=== PATIENT | female | born 1960 | race Caucasian/White ===

== ENCOUNTER 2017-07-29 12:00 | Emergency (ER) | payer MEDICAID ==
[2014-11-06 10:57] VITALS: BMI 25.8
[2017-07-29 12:20] VITALS: BP 169/66; PULSE 77; RESP 18; TEMP 98; O2SAT 97
--- NOTE | 2017-07-29 12:40 | ED PDOC ---
Lower Extremity Pain/Injury Time Seen by Provider: 07/29/17 12:16 Chief Complaint (Nursing): Lower Extremity Problem/Injury Chief Complaint (Provider): Left lower extremity pain History Per: Patient History/Exam Limitations: no limitations Onset/Duration Of Symptoms: Days (2) Current Symptoms Are (Timing): Still Present Additional Complaint(s): 56yo female, with past medical history of COPD, hypertension, presents to the ED for evaluation of left calf pain x 2 days. Patient states she feels her legs are weak and numb when she is walking up the stairs. She also reports she has been feeling dizzy and light headed as well. 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 She denies any control use, trauma or injury to her leg. Past Medical History Reviewed: Historical Data, Nursing Documentation, Vital Signs Vital Signs: Last Vital Signs Temp 98.0 F 07/29/17 12:17 Pulse 77 07/29/17 12:17 Resp 18 07/29/17 12:17 BP 169/66 H 07/29/17 12:17 Pulse Ox 97 07/29/17 12:17 - Medical History PMH: Anxiety, Asthma, Depression, Gastritis, HTN - Surgical History Surgical History: Cholecystectomy - Family History Family History: States: No Known Family Hx - Allergies Allergies/Adverse Reactions: Allergies Allergy/AdvReac Type Severity Reaction Status Date / Time No Known Allergies Allergy Verified 07/29/17 12:20 Review of Systems Cardiovascular: Positive for: Light Headedness Musculoskeletal: Positive for: Leg Pain (left calf pain) Neurological: Positive for: Weakness, Dizziness Physical Exam - Reviewed Nursing Documentation Reviewed: Yes Vital Signs Reviewed: Yes - Physical Exam Appears: Positive for: Non-toxic, No Acute Distress Head Exam: Positive for: ATRAUMATIC, NORMAL INSPECTION, NORMOCEPHALIC Eye Exam: Positive for: Normal appearance Neck: Positive for: Supple Cardiovascular/Chest: Positive for: Regular Rate, Rhythm Respiratory: Negative for: Respiratory Distress Pulses-Dorsalis Pedis (L): 2+ Extremity: Positive for: Normal ROM, Calf Tenderness (left calf tenderness). Negative for: Deformity, Swelling Neurologic/Psych: Positive for: Alert, Oriented - ECG O2 Sat by Pulse Oximetry: 97 (RA) Pulse Ox Interpretation: Normal Medical Decision Making Medical Decision Making: Time: 1220 Impression: Left leg pain Plan: -- US Doppler left lower extremity -- Patient denies pain medications (-) DVT on US Scribe Attestation: Documented by Bailey Holt acting as a scribe for MARICRUZ Rangel Provider Attestation: All medical record entries made by the Scribe were at my direction and personally dictated by me. I have reviewed the chart and agree that the record accurately reflects my personal performance of the history, physical exam, medical decision making, and the department course for this patient. I have also personally directed, reviewed, and agree with the discharge instructions and disposition. Disposition - Clinical Impression Clinical Impression: Pain of left calf - Patient ED Disposition Is Patient to be Admitted: No Counseled Patient/Family Regarding: Diagnosis, Need For Followup - Disposition Disposition: Routine/Home Disposition Time: 13:56 Condition: GOOD Additional Instructions: Please follow-up with PMD. Instructions: Leg Pain (ED) Forms: [facility] (Sudanese)
--- NOTE | 2017-07-29 13:43 | US ---
HISTORY: Left calf pain 2 days duration. PRIORS: None. FINDINGS: 2-D, color and duplex Doppler analysis of the lower extremity venous circulation using routine protocol from the femoral veins through the popliteal veins. Venous compressibility: Normal. Flow and augmentation patterns: Normal. Visualized veins upper third of calf: Normal. Bhatt cyst: None. IMPRESSION: No sonographic or Doppler evidence for DVT in left lower extremity.
== END 2017-07-29 14:10 | disposition home or self-care (01) ==
LOC: H.ER 12:00
DX: M79.605 Pain in left leg (principal); F32.9 Major depressive disorder, single episode, unspecified; F41.9 Anxiety disorder, unspecified; I10 Essential (primary) hypertension

== ENCOUNTER 2018-11-16 13:13 | Emergency (ER) | payer MEDICAID ==
[2018-11-16 13:19] VITALS: BMI 26.1
[2018-11-16 13:20] VITALS: TEMP 98.1
--- NOTE | 2018-11-16 13:52 | ED PDOC ---
HPI: Headache Time Seen by Provider: 11/16/18 13:42 Chief Complaint (Nursing): Headache Chief Complaint (Provider): Headache History Per: Patient History/Exam Limitations: no limitations Onset/Duration Of Symptoms: Days (headache for 3x weeks, scalp pain for 1x week) Current Symptoms Are (Timing): Still Present Quality: Burning Additional Complaint(s): 58 year old female with a past medical history of asthma, COPD, and hypertension presents to the ED for an evaluation of right sided (described as burning) scalp pain ongoing for 1x week and a right sided headache ongoing for 3x weeks. Patient reports that she was seen at [facility] for the same complaints on 11/10/2018 and was diagnosed with a cyst of the scalp, with no diagnostics performed, and prescribed keflex and a course of steroids, which she has been compliant with, but has had no relief. Patient reports taking Ibuprofen today x4 hours prior to arrival with no relief. Patient reports having associated nausea and intermittent dizziness. Otherwise: (-) fevers, (-) vomiting, (-) numbness, (-) weakness, (-) abdominal pain, (-) chest pain, (-) cough, (-) visual changes, (-) sick contacts. PMD: Marquis Barrientos MD Past Medical History Reviewed: Historical Data, Nursing Documentation, Vital Signs Vital Signs: Last Vital Signs Temp 98.1 F 11/16/18 13:19 Pulse 77 11/16/18 13:19 Resp 17 11/16/18 13:19 BP 179/95 H 11/16/18 13:19 Pulse Ox 100 11/16/18 13:19 HUEY Report Viewed: Yes - Medical History PMH: Anxiety, Asthma, COPD, Depression, Gastritis, HTN - Surgical History Surgical History: Cholecystectomy, Other surgeries: lumbar disectomy - Family History Family History: States: No Known Family Hx - Social History Current smoker - smoking cessation education provided: Yes Alcohol: None Drugs: Denies - Home Medications Home Medications: Ambulatory Orders Medication Instructions Recorded RX: Naproxen 500 mg PO BID PRN #20 tab 11/16/18 - Allergies Allergies/Adverse Reactions: Allergies Allergy/AdvReac Type Severity Reaction Status Date / Time No Known Allergies Allergy Verified 11/16/18 13:35 Review of Systems ROS Statement: Except As Marked, All Systems Reviewed And Found Negative Constitutional: Negative for: Fever Eyes: Negative for: Vision Change Cardiovascular: Negative for: Chest Pain Respiratory: Negative for: Cough Gastrointestinal: Positive for: Nausea. Negative for: Vomiting, Abdominal Pain Neurological: Positive for: Headache (right sided headache, right sided scalp pain), Dizziness (intermittent). Negative for: Weakness, Numbness Physical Exam - Reviewed Nursing Documentation Reviewed: Yes Vital Signs Reviewed: Yes - Physical Exam Comments: GENERAL APPEARANCE: Patient is awake, alert, oriented x 3, in no acute distress, resting comfortably. SKIN: Warm, dry; (-) cyanosis; (-) rash. HEAD: (+) tenderness to right parietal scalp. (-) palpable mass, (-) erythema, (-) warmth (-) temporal artery tenderness. EYES: (-) conjunctival pallor, (-) scleral icterus. ENMT: Ears: Ear canals patent. TMs non bulging, non erythematous. (-) sinus tenderness; mucous membranes are moist. Pharynx: uvula midline (-) erythema, (-) exudates. NECK: Supple, FROM (-) tenderness, (-) stiffness, (-) meningismus, (-) lymphadenopathy. CHEST AND RESPIRATORY: (-) rales, (-) rhonchi, (-) wheezes; breath sounds equal bilaterally. Respirations even and nonlabored. HEART AND CARDIOVASCULAR: (-) irregularity ABDOMEN AND GI: Soft; (-) tenderness. EXTREMITIES: (-) deformity. NEURO AND PSYCH: Mental status as above. cut pressman: Pupils equal and reactive; EOMI and painless; (-) facial asymmetry; tongue and uvula midline. Gait: steady. Speech: clear. - Laboratory Results Result Diagrams: 11/16/18 14:00 11/16/18 14:00 Urine dip results: Positive for: Blood (moderate). Negative for: Leukocyte Esterase, Nitrate, Ketones, Glucose, Bilirubin, Protein - ECG O2 Sat by Pulse Oximetry: 100 (RA) Pulse Ox Interpretation: Normal Medical Decision Making Medical Decision Makin:40 Clinical impression: 58 year old female with a headache and nausea, rule out intracranial abnormality. Initial plan: * CT head w/o contrast * BMP * drug screen urinary * udip * CBC with differential * IV NS 1,000 ml IV 1,000 mls/hr * tylenol 325 mg tab 650 mg PO * zofran inj 4 mg IVP * reevaluation [address] Udip reviewed (+) hematuria. U/A and U/C ordered. 1450 CBC and CMP grossly unremarkable. Utox: negative U/A: unremarkable. Pending CT report. Patient returned from CT without incident, resting comfortably and tolerating PO intake. 1510 CT reviewed, radiology report follows Date of service: 11/16/2018 PROCEDURE: CT HEAD WITHOUT CONTRAST. HISTORY: Right-sided headache x1 week, no relief with meds COMPARISON: Comparison made with prior CT scan brain dated 01/13/2014.. TECHNIQUE: Axial computed tomography images were obtained through the head/brain without intravenous contrast. Radiation dose: Total exam DLP = 784.26 mGy-cm. This CT exam was performed using one or more of the following dose reduction techniques: Automated exposure control, adjustment of the mA and/or kV according to patient size, and/or use of iterative reconstruction technique. FINDINGS: HEMORRHAGE: No intracranial hemorrhage. BRAIN: No mass effect or edema. No atrophy or chronic microvascular ischemic changes. Mild vascular calcifications both carotid siphons. VENTRICLES: Unremarkable. No hydrocephalus. CALVARIUM: Unremarkable. PARANASAL SINUSES: Unremarkable as visualized. No significant inflammatory changes. MASTOID AIR CELLS: Unremarkable as visualized. No inflammatory changes. OTHER FINDINGS: None. IMPRESSION: No acute intracranial hemorrhage. Results discussed with patient. Patient requesting additional medication for headache. Toradol 30mg IVP and Reglan 10mg IVP ordered. Patient further reports she has a neurologist: Dr. Nima Nguyen MD 1550 Repeat BP: 113/57 On re-evaluation, patient reports improvement of symptoms. On exam, patient remains AAOx3, in no acute distress. Lungs clear to auscultation, cardiac RRR, abdomen soft, non-tender, repeat neuro exam shows no focal findings. Vitals stable. Lab/Diagnostic results d/w the patient in great detail. Diagnosis of headache, scalp irritation d/w the patient. Based on history, exam and diagnostic results, plan will be for outpatient follow up with PMD/neuro. Patient instructed to follow-up with pmd / referral provided / the clinic in 1- 2 days without fail. Advised to take medication as prescribed. Return to the emergency room at any time for any new or worsening symptoms. Patient states she fully agrees with and understands discharge instructions. States that she agrees with the plan and disposition. Verbalized and repeated discharge instructions and plan. I have given the patient opportunity to ask any additional questions. Scribe Attestation: Documented byEstefania Villa, acting as a scribe for Estefania Rubio Provider Scribe Attestation: All medical record entries made by the Scribe were at my direction and personally dictated by me. I have reviewed the chart and agree that the record accurately reflects my personal performance of the history, physical exam, medical decision making, and the department course for this patient. I have also personally directed, reviewed, and agree with the discharge instructions and disposition. Disposition - Clinical Impression Clinical Impression: Headache, Scalp irritation, Dizziness, Nausea - Patient ED Disposition Is Patient to be Admitted: No Counseled Patient/Family Regarding: Studies Performed, Diagnosis, Need For Followup, Rx Given - Disposition Referrals: Nima Nguyen MD [Non-Staff] - primary, doctor [Other] Disposition: Routine/Home Disposition Time: 15:50 Condition: STABLE Additional Instructions: The emergency medical care you received today was directed at your acute symptoms. If you were prescribed any medication, please fill it and take as directed. It may take several days for your symptoms to resolve. Return to the Emergency Department if your symptoms worsen, do not improve, or if you have any other problems. Please contact your doctor in 2 days for re-evaluation and follow up / or call one of the physicians/clinics you have been referred to that are listed on the Patient Visit Information form that is included in your discharge packet. Bring any paperwork you were given at discharge with you along with any medications you are taking to your follow up visit. Our treatment cannot replace ongoing medical care by a primary care provider (PCP) outside of the emergency department. Prescriptions: RX: Naproxen 500 mg PO BID PRN #20 tab PRN Reason: Headache Instructions: Headache, Adult (DC), Dizziness, Nonvertigo, (DC) Forms: [facility] (Argentine) Print Language: GREEK - POA Present On Arrival: None Results - Lab Results Lab Results: 11/16/18 11/16/18 11/16/18 14:35 14:10 14:00 WBC 9.1 RBC 5.16 Hgb 14.2 Hct 42.6 MCV 82.5 MCH 27.5 MCHC 33.3 RDW 13.7 Plt Count 314 MPV 8.9 Neut % (Auto) 67.9 Lymph % (Auto) 21.9 Clinch % (Auto) 6.5 Eos % (Auto) 3.1 Baso % (Auto) 0.6 Neut # (Auto) 6.2 Lymph # (Auto) 2.0 Clinch # (Auto) 0.6 Eos # (Auto) 0.3 Baso # (Auto) 0.1 Sodium Potassium Chloride Carbon Dioxide Anion Gap BUN Creatinine Est GFR ( Amer) Est GFR (Non-Af Amer) Random Glucose Calcium Urine Color Yellow Urine Clarity Slighty-cloudy Urine pH 6.0 Ur Specific [place] 1.010 Urine Protein Negative Urine Glucose (UA) Neg Urine Ketones Negative Urine Blood Negative Urine Nitrate Negative Urine Bilirubin Negative Urine Urobilinogen 0.2-1.0 Ur Leukocyte Esterase Neg Urine RBC (Auto) 1 Urine Microscopic WBC < 1 Urine Opiates Screen Negative Urine Methadone Screen Negative Ur Barbiturates Screen Negative Ur Phencyclidine Scrn Negative Ur Amphetamines Screen Negative U Benzodiazepines Scrn Negative U Oth Cocaine Metabols Negative U Cannabinoids Screen Negative 11/16/18 14:00 WBC RBC Hgb Hct MCV MCH MCHC RDW Plt Count MPV Neut % (Auto) Lymph % (Auto) Clinch % (Auto) Eos % (Auto) Baso % (Auto) Neut # (Auto) Lymph # (Auto) Clinch # (Auto) Eos # (Auto) Baso # (Auto) Sodium 139 Potassium 4.1 Chloride 103 Carbon Dioxide 29 Anion Gap 11 BUN 16 Creatinine 0.8 Est GFR ( Amer) > 60 Est GFR (Non-Af Amer) > 60 Random Glucose 99 Calcium 9.7 Urine Color Urine Clarity Urine pH Ur Specific [place] Urine Protein Urine Glucose (UA) Urine Ketones Urine Blood Urine Nitrate Urine Bilirubin Urine Urobilinogen Ur Leukocyte Esterase Urine RBC (Auto) Urine Microscopic WBC Urine Opiates Screen Urine Methadone Screen Ur Barbiturates Screen Ur Phencyclidine Scrn Ur Amphetamines Screen U Benzodiazepines Scrn U Oth Cocaine Metabols U Cannabinoids Screen
[2018-11-16] MEDS ORDERED: Sodium Chloride 0.9% 1,000 ML IV ONE (13:54)
[2018-11-16 14:09] LABS: BASO # 0.1 K/uL (0.0-0.2); BASO % 0.6 % (0.0-2.0); EOS # 0.3 K/uL (0.0-0.7); EOS % 3.1 % (0.0-4.0); HEMOGLOBIN 14.2 g/dL (12.0-16.0); LYMPH % 21.9 % (20.0-40.0); MEAN CELL VOLUME 82.5 fl (81.0-99.0); MEAN CORPUSCULAR HEMOGLOBIN 27.5 pg (27.0-31.0); MEAN CORPUSCULAR HGB CONC 33.3 g/dL (33.0-37.0); MEAN PLATELET VOLUME 8.9 fl (7.2-11.7); MONO # 0.6 K/uL (0.0-0.8); MONO % 6.5 % (0.0-10.0); NEUT # 6.2 K/uL (1.8-7.0); NEUT % 67.9 % (50.0-75.0); NRBC % 0.3 % (0.0-0.0); RBC 5.16 Mil/uL (3.80-5.20); RED CELL DISTRIBUTION WIDTH 13.7 % (11.5-14.5); WHITE BLOOD COUNT 9.1 K/uL (4.8-10.8)
[2018-11-16 14:32] LABS: BLOOD UREA NITROGEN 16 mg/dl (7-17); CALCIUM 9.7 mg/dL (8.4-10.2); GFR NON-AFRICAN AMERICAN > 60
[2018-11-16 14:36] LABS: BARBITURATES, UR NEGATIVE (NEGATIVE); BENZODIAZEPINES, UR NEGATIVE (NEGATIVE); OPIATES, UR NEGATIVE (NEGATIVE); PHENCYCLIDINE, UR NEGATIVE (NEGATIVE)
[2018-11-16 14:42] LABS: URINE BILIRUBIN NEGATIVE (NEGATIVE); URINE BLOOD NEGATIVE (NEGATIVE); URINE CLARITY SLIGHTY-CLOUDY (Clear); URINE COLOR YELLOW (YELLOW); URINE GLUCOSE (UA) NEG (NEGATIVE); URINE LEUKOCYTE ESTERASE NEG Leu/uL (Negative); URINE PROTEIN NEGATIVE (NEGATIVE); URINE UROBILINOGEN 0.2-1.0 mg/dL (0.2-1.0)
--- NOTE | 2018-11-16 15:01 | CT ---
Date of service: 11/16/2018 PROCEDURE: CT HEAD WITHOUT CONTRAST. HISTORY: Right-sided headache x1 week, no relief with meds COMPARISON: Comparison made with prior CT scan brain dated 01/13/2014.. TECHNIQUE: Axial computed tomography images were obtained through the head/brain without intravenous contrast. Radiation dose: Total exam DLP = 784.26 mGy-cm. This CT exam was performed using one or more of the following dose reduction techniques: Automated exposure control, adjustment of the mA and/or kV according to patient size, and/or use of iterative reconstruction technique. FINDINGS: HEMORRHAGE: No intracranial hemorrhage. BRAIN: No mass effect or edema. No atrophy or chronic microvascular ischemic changes. Mild vascular calcifications both carotid siphons. VENTRICLES: Unremarkable. No hydrocephalus. CALVARIUM: Unremarkable. PARANASAL SINUSES: Unremarkable as visualized. No significant inflammatory changes. MASTOID AIR CELLS: Unremarkable as visualized. No inflammatory changes. OTHER FINDINGS: None. IMPRESSION: No acute intracranial hemorrhage.
[2018-11-16 15:46] VITALS: BP 113/57; PULSE 76; RESP 16
[2018-11-16 16:06] VITALS: O2SAT 100
== END 2018-11-16 16:51 | disposition home or self-care (01) ==
LOC: H.ER 13:13
DX: R51 Headache (principal); R42 Dizziness and giddiness; R11.0 Nausea; L98.9 Disorder of the skin and subcutaneous tissue, unspecified
CPT/HCPCS: 70450; 80048; 80324; 80345; 80346; 80349; 80353; 80358; 80361; 81003; 83992; 85025; 87086; 96374; 96375; 99285; J1885; J2405; J2765; J7030

== ENCOUNTER 2019-02-13 13:58 | Emergency (ER) | payer MEDICAID ==
[2019-02-13 13:58] VITALS: BMI 26.1
[2019-02-13 14:09] VITALS: BP 122/80; PULSE 81; RESP 18; TEMP 98.7; O2SAT 97
--- NOTE | 2019-02-13 14:38 | ED PDOC ---
HPI: General Adult Time Seen by Provider: 02/13/19 14:09 Chief Complaint (Nursing): ENT Problem Chief Complaint (Provider): ENT problem History Per: Patient History/Exam Limitations: no limitations Onset/Duration Of Symptoms: Days (2x weeks) Additional Complaint(s): 58 year old female with a past medical history of asthma, COPD, and hypertension presents to the ED for evaluation of right ear discomfort that started x1 week ago. Patient states that x4 days ago, she completed a x10 day course of Augmentin prescribed to her by her PMD for sinusitis. Patient reports improvement of symptoms, however right ear pain persists, and patient notes having some residual nasal congestion. Patient reports taking advil 600mg today x2 hours prior to arrival. Patient is concerned for an ear infection prompting ED visit today. Otherwise: (-) fever, (-) headaches, (-) dizziness, (-) changes in hearing, (-) throat pain, (-) cough, (-) shortness of breath (-) chest pain. LMP: more than 1x year ago PMD: Marquis Barrientos MD Past Medical History Reviewed: Historical Data, Nursing Documentation, Vital Signs Vital Signs: Last Vital Signs Temp 98.7 F 02/13/19 14:07 Pulse 81 02/13/19 14:07 Resp 18 02/13/19 14:07 BP 122/80 02/13/19 14:07 Pulse Ox 97 02/13/19 14:07 HUEY Report Viewed: Yes - Medical History PMH: Anxiety, Asthma, COPD, Depression, Gastritis, HTN - Surgical History Surgical History: Cholecystectomy, Other surgeries: discectomy of lumbar spine - Family History Family History: States: No Known Family Hx - Home Medications Home Medications: Ambulatory Orders Medication Instructions Recorded Naproxen 500 mg PO BID PRN #20 tab 11/16/18 Naproxen 500 mg PO BID PRN #20 tab 02/13/19 - Allergies Allergies/Adverse Reactions: Allergies Allergy/AdvReac Type Severity Reaction Status Date / Time No Known Allergies Allergy Verified 11/16/18 13:35 Review of Systems ROS Statement: Except As Marked, All Systems Reviewed And Found Negative Constitutional: Negative for: Fever ENT: Positive for: Ear Pain (right ear), Nose Congestion. Negative for: Throat Pain, Other (changes in hearing) Respiratory: Negative for: Cough, Shortness of Breath Neurological: Negative for: Headache, Dizziness Physical Exam - Reviewed Nursing Documentation Reviewed: Yes Vital Signs Reviewed: Yes - Physical Exam Comments: GENERAL APPEARANCE: Patient is awake, alert, oriented x 3, in no acute distress. Resting comfortably. SKIN: Warm, dry; (-) cyanosis. EYES: (-) conjunctival injection ENMT: (-) sinus tenderness. Bilateral ears: TMs nonbulging, nonerythematous. Ear canals patent, (-) cerumen impaction, (-) erythema, (-) edema, (-) exudates. (+) Right sided preauricular lymphadenopathy. Mucous membranes moist. Airway patent: (-) stridor. Pharynx: clear, uvula midline (-) swelling, (-) erythema, (-) exudate. NECK: Supple, FROM (-) tenderness, (-) stiffness, (+) anterior cervical lymphadenopathy. CHEST AND RESPIRATORY: (-) rhonchi, (-) rales, (-) wheezes; breath sounds equal bilaterally. Respirations even and nonlabored. HEART AND CARDIOVASCULAR: (-) irregularity ABDOMEN AND GI: Soft; (-) tenderness. EXTREMITIES: (-) deformity; (-) edema. NEURO AND PSYCH: Mental status as above. Cranial nerves grossly intact; strength symmetric. Gait: steady. Speech: clear. - ECG O2 Sat by Pulse Oximetry: 97 (RA) Pulse Ox Interpretation: Normal Medical Decision Making Medical Decision Makin:05 Clinical impression: 58 year old female with sinusitis resolved, concern for ear infection. Initial plan: * throat culture * rapid strep * reevaluation 1435 Rapid strep: negative On re-evaluation, patient reports improvement of symptoms. On exam, patient remains AAOx3, in no acute distress. Vitals stable. Lab/Diagnostic results d/w the patient in great detail. Diagnosis of nasal congestion, lymphadenopathy d/w the patient. Based on history, exam and diagnostic results, plan will be for outpatient follow up with ENT. Patient instructed to follow-up with pmd / referral provided / the clinic in 1- 2 days without fail. Advised to take medication as prescribed. Return to the emergency room at any time for any new or worsening symptoms. Patient states she fully agrees with and understands discharge instructions. States that she agrees with the plan and disposition. Verbalized and repeated discharge instructions and plan. I have given the patient opportunity to ask any additional questions. Scribe Attestation: Documented by Estefania Villa, acting as a scribe for Estefania Rubio Provider Scribe Attestation: All medical record entries made by the Scribe were at my direction and personally dictated by me. I have reviewed the chart and agree that the record accurately reflects my personal performance of the history, physical exam, medical decision making, and the department course for this patient. I have also personally directed, reviewed, and agree with the discharge instructions and disposition. Disposition - Clinical Impression Clinical Impression: Preauricular adenopathy, Nasal congestion, Otalgia of right ear - Patient ED Disposition Is Patient to be Admitted: No Counseled Patient/Family Regarding: Studies Performed, Diagnosis, Need For Followup, Rx Given - Disposition Referrals: Marquis Barrientos MD [Family Provider] - Blane Mcclendon MD [Staff Provider] - Disposition: Routine/Home Disposition Time: 14:35 Condition: STABLE Additional Instructions: The emergency medical care you received today was directed at your acute symptoms. If you were prescribed any medication, please fill it and take as directed. It may take several days for your symptoms to resolve. Return to the Emergency Department if your symptoms worsen, do not improve, or if you have any other problems. Please contact your doctor in 2 days for re-evaluation and follow up / or call one of the physicians/clinics you have been referred to that are listed on the Patient Visit Information form that is included in your discharge packet. Bring any paperwork you were given at discharge with you along with any medications you are taking to your follow up visit. Our treatment cannot replace ongoing medical care by a primary care provider (PCP) outside of the emergency department. Prescriptions: Naproxen 500 mg PO BID PRN #20 tab PRN Reason: Pain, Moderate (4-7) Instructions: Sinusitis in Adults, Swollen Neck Nodes in Children Forms: [facility] (Nepali) Print Language: RWANDAN - POA Present On Arrival: None
== END 2019-02-13 14:50 | disposition home or self-care (01) ==
LOC: H.ER 13:58
DX: R59.9 Enlarged lymph nodes, unspecified (principal); R09.81 Nasal congestion; H92.01 Otalgia, right ear; I10 Essential (primary) hypertension; Z86.59 Personal history of other mental and behavioral disorders; J44.9 Chronic obstructive pulmonary disease, unspecified